=== PATIENT | male | born 1995 | race African-American/Black ===

== ENCOUNTER 2019-07-16 15:00 | Outpatient (RCR) | payer OTHER ==
[2019-06-27 15:04] VITALS: BP 120/60; PULSE 52; TEMP 98
--- NOTE | 2019-06-27 15:53 | NUR ---
Pt denies any symptoms from Xolair injection.
[~2019-07-16] VITALS: Ht 170.2 cm; Wt 87.5 kg
[~2019-07-16 15:00] MED LIST: PREDNISONE20 MG PO; PROAIR HFA0.09 MG/AC IH; RT ADVAIR 528 DISKUS IH
[2019-07-16] MEDS ORDERED: SPIRIVA RE2.5 MCG/Ac IH (15:37)
[2019-07-16 15:43] VITALS: BP 116/60; PULSE 58; TEMP 98.4
--- NOTE | 2019-07-16 16:29 | NUR ---
Pt observed for 1 hour after Xolair. Pt jermain well. Pt declined further observation. Pt left unit per ambulation with friend.
== END 2019-09-25 | disposition home or self-care (01) ==
LOC: EUO
DX: J45.50 Severe persistent asthma, uncomplicated (principal); Z79.899 Other long term (current) drug therapy
CPT/HCPCS: J2357

== ENCOUNTER 2020-05-03 14:00 | Outpatient (RCR) | payer OTHER ==
--- NOTE | 2020-02-02 13:18 | NUR ---
PT RESCHEDULED.PER PT HE TRANSPORTED SUPSPECTED COVID 19 PT TO [facility].PER PT IS [place]INA [place].REVIEWED WITH LUCAS,INFECTION CONTROL.PER LUCAS,PT RESCHEDULED UNTIL AFTER TEST RESULTS BACK.
[2020-02-06 15:53] VITALS: BP 121/81; PULSE 50; TEMP 97.5
[2020-02-24 15:03] VITALS: BP 123/69; PULSE 62; TEMP 97.8
[~2020-05-03] VITALS: Ht 170.2 cm; Wt 87.0 kg
[~2020-05-03 14:00] MED LIST changes: +SPIRIVA RE2.5 MCG/Ac IH
== END 2020-05-06 | disposition home or self-care (01) ==
LOC: EUO
DX: J45.50 Severe persistent asthma, uncomplicated (principal); Z79.899 Other long term (current) drug therapy
CPT/HCPCS: J2357

== ENCOUNTER 2020-07-23 15:00 | Outpatient (RCR) | payer OTHER ==
[2020-05-19 15:43] VITALS: BP 127/78; PULSE 82; TEMP 97.9
[2020-06-02 14:29] VITALS: BP 126/73; PULSE 66; TEMP 98.3
[2020-06-18 14:00] VITALS: BP 122/72; PULSE 77; TEMP 98.2
[~2020-07-23] VITALS: Ht 170.2 cm; Wt 92.0 kg
[2020-07-23 14:27] VITALS: BP 131/77; PULSE 83; TEMP 98.1
[~2020-07-23 15:00] MED LIST changes: +XOLAIR75 MG/0.5 SQ
== END 2020-08-05 14:42 | disposition home or self-care (01) ==
LOC: EUO 15:00
DX: J45.40 Moderate persistent asthma, uncomplicated (principal); Z79.899 Other long term (current) drug therapy

== ENCOUNTER 2020-09-17 14:30 | Outpatient (RCR) | payer OTHER ==
[2020-08-06 14:30] VITALS: BP 117/66; PULSE 107; TEMP 97.7
[2020-08-20 14:30] VITALS: BP 123/68; PULSE 104; TEMP 97.5
[2020-09-03 14:44] VITALS: BP 134/75; PULSE 91; TEMP 97.6
[~2020-09-17] VITALS: Ht 170.2 cm; Wt 91.3 kg
[2020-09-17 14:27] VITALS: BP 132/81; PULSE 93; TEMP 97.5
--- NOTE | 2020-09-17 14:41 | NUR ---
Per pt this is his last dose.He edna be transferred after today [place].Attempted to call office to request d/c orders.
== END 2020-09-17 14:43 | disposition still patient (30) ==
LOC: EUO 14:30
DX: J45.40 Moderate persistent asthma, uncomplicated (principal); Z79.899 Other long term (current) drug therapy